=== PATIENT | female | born 1980 | race American Indian/Alaskan Native ===

== ENCOUNTER 2021-01-06 07:40 | Observation (INO) | payer MEDICAID, OTHER ==
--- NOTE | 2021-01-06 08:10 | Event Note ---
ED Screening Note Date of service: 01/06/21 Time: 08:09 ED Screening Note: Patient complains of sudden onset of dizziness, chest pain, shortness of breath today while at work History of diabetes and hypertension POC glucose 372 No current chest pain per patient This initial assessment/diagnostic orders/clinical plan/treatment(s) is/are subject to change based on patients health status, clinical progression and re- assessment by fellow clinical providers in the ED. Further treatment and workup at subsequent clinical providers discretion. Patient/guardian urged not to elope from the ED as their condition may be serious if not clinically assessed and managed. Initial orders include: Labs EKG Chest x-ray
[2021-01-06 08:56] LABS: Bacteria,Urine 1+ /HPF (Negative); Bilirubin,Urine NEG (Negative); Blood,Urine NEG (Negative); Color,Urine Yellow (Yellow); Hyaline Casts,Urine 7 /LPF; Urobilinogen,Urine < 2.0 mg/dL (<2.0)
--- NOTE | 2021-01-06 09:18 | XRay Report ---
CHEST 2 VIEWS INDICATION / CLINICAL INFORMATION: chest pain. COMPARISON: None available. FINDINGS: SUPPORT DEVICES: None. HEART / MEDIASTINUM: No significant abnormality. LUNGS / PLEURA: No significant pulmonary or pleural abnormality. No pneumothorax. ADDITIONAL FINDINGS: No significant additional findings. IMPRESSION: 1. No acute findings. Signer Name: Jose Vidales MD Signed: 01/06/2021 9:13 AM Workstation Name: [id number]
[2021-01-06 09:38] LABS: Protein,Urine >500 mg/dL (Negative)
[2021-01-06] MEDS ORDERED: SODIUM CHLORIDE 0.9% 1000 ML 1,000 ML IV ONE ×2 (11:31→14:23)
--- NOTE | 2021-01-06 11:37 | Emergency Department Report ---
ED Chest Pain HPI - General Chief Complaint: Weakness Stated Complaint: COLD SWEATS Time Seen by Provider: 01/06/21 08:06 Source: patient Mode of arrival: Ambulatory Limitations: No Limitations - History of Present Illness Initial Comments: 40-year-old female with history of hypertension and DM 2 presents after a near syncopal episode which occurred this morning at work. The patient stated that this morning she got to work at a [employer] and she was standing in line when she began to feel lightheaded and started having cold sweats. She felt as if she was about to pass out but never did. She briefly experienced shortness of breath with chest pain and generalized abdominal pain which lasted for approximately 2 minutes and then resolved. All of her symptoms resolved over the course of a few minutes. She reports that she has no symptoms at this time. She reports that she has not been checking her blood sugars for the past few weeks but is unable to explain why. Other than her symptoms today she denies experiencing any headache, vision change, focal weakness, sensory changes, chest pain, shortness of breath, cough, abdominal pain, nausea/vomiting, dysuria, back pain, rash, or any other complaints. Her LMP started and she is on her menstrual period now. Denies any recent surgery, travel, or prolonged immobilization. - Related Data Home Medications Medication Instructions Recorded Confirmed Last Taken Januvia 01/06/21 Unknown Lasix 01/06/21 Unknown amLODIPine 01/06/21 Unknown glipiZIDE 01/06/21 Unknown hydrALAZINE 01/06/21 Unknown Allergies Allergy/AdvReac Type Severity Reaction Status Date / Time No Known Allergies Allergy Unverified 01/06/21 08:07 Heart Score - HEART Score History: Slightly suspicious EKG: Normal Age: < 45 Risk factors: 1-2 risk factors Troponin: 1-3x normal limit HEART Score: 2 - EKG Read Time Time EKG Completed: 08:12 EKG Read Time: 08:17 ED Review of Systems ROS: Stated complaint: COLD SWEATS Other details as noted in HPI Constitutional: denies: chills, fever Eyes: denies: eye pain, vision change ENT: denies: throat pain, congestion Respiratory: shortness of breath (resolved). denies: cough Cardiovascular: chest pain (resolved). denies: palpitations, edema, syncope Endocrine: denies: increased thirst, increased urine Gastrointestinal: abdominal pain (resolved). denies: nausea, vomiting Genitourinary: denies: dysuria, frequency, abnormal menses Musculoskeletal: denies: back pain Skin: denies: rash Neurological: denies: headache, weakness, numbness ED Past Medical Hx - Past Medical History Previous Medical History?: Yes Hx Hypertension: Yes Hx Diabetes: Yes - Medications Home Medications: Home Medications Medication Instructions Recorded Confirmed Last Taken Type Januvia 01/06/21 Unknown History Lasix 01/06/21 Unknown History amLODIPine 01/06/21 Unknown History glipiZIDE 01/06/21 Unknown History hydrALAZINE 01/06/21 Unknown History ED Physical Exam - General Limitations: No Limitations - Other Other exam information: GENERAL: Well developed and well nourished. No acute distress HEENT: Normocephalic. No obvious signs of trauma. Dry mucous membranes. EYES: Extraocular movements are intact. Pupils are equal round and reactive to light bilaterally NECK: Supple. Trachea is midline. LUNGS: Nonlabored breathing. Equal chest rise bilaterally. Clear to auscultation bilaterally. HEART/CARDIOVASCULAR: Regular rate and rhythm. No murmurs or rubs. VASCULAR: 2+ peripheral pulses. Cap refill < 2 seconds. Trace LE edema bilaterally ABDOMEN: Abdomen is soft and nondistended. There is no significant tenderness, guarding or rebound. SKIN: Skin is warm and dry NEURO: Patient is awake, alert, and oriented. civil engineering designer II-XII grossly intact. No focal deficits. Normal motor and sensory exam throughout. Normal speech. MUSCULOSKELETAL: No obvious deformities. No significant tenderness. BACK/SPINE: No costovertebral angle tenderness. ED Course Vital Signs 01/06/21 01/06/21 01/06/21 08:07 12:00 12:16 Temperature 98.1 F Pulse Rate 80 76 76 Respiratory 16 17 14 Rate Blood Pressure 145/67 145/67 Blood Pressure 156/76 [Right] O2 Sat by Pulse 99 Oximetry 01/06/21 01/06/21 01/06/21 12:30 12:46 13:00 Temperature Pulse Rate Respiratory 14 10 L 15 Rate Blood Pressure 160/82 160/82 170/90 Blood Pressure [Right] O2 Sat by Pulse Oximetry 01/06/21 01/06/21 01/06/21 13:16 14:48 15:00 Temperature Pulse Rate Respiratory 17 Rate Blood Pressure 170/90 172/69 162/46 Blood Pressure [Right] O2 Sat by Pulse Oximetry 01/06/21 01/06/21 01/06/21 15:25 15:30 15:55 Temperature Pulse Rate Respiratory Rate Blood Pressure 178/87 178/87 170/88 Blood Pressure [Right] O2 Sat by Pulse Oximetry 01/06/21 01/06/21 01/06/21 16:00 16:25 16:30 Temperature Pulse Rate Respiratory Rate Blood Pressure 170/88 162/90 162/90 Blood Pressure [Right] O2 Sat by Pulse Oximetry 01/06/21 01/06/21 01/06/21 16:55 17:00 17:16 Temperature Pulse Rate 85 Respiratory 18 Rate Blood Pressure 181/85 181/85 Blood Pressure [Right] O2 Sat by Pulse 100 Oximetry 01/06/21 01/06/21 01/06/21 17:22 17:30 17:54 Temperature Pulse Rate 83 84 Respiratory 17 15 Rate Blood Pressure 181/85 181/85 175/88 Blood Pressure [Right] O2 Sat by Pulse Oximetry ZI score - Zi Score Age > 65: (0) No Aspirin use within the Past 7 Days: (0) No 3 or more CAD Risk Factors: (0) No 2 or more Angina events in past 24 hrs: (0) No Known CAD with more than 50% Stenosis: (0) No Elevated Cardiac Markers: (0) No ST Deviation Greater than 0.5mm: (0) No ZI Score: 0 ED Medical Decision Making - Lab Data Result diagrams: 01/06/21 Unknown 01/06/21 13:17 Lab Results 01/06/21 01/06/21 01/06/21 Range/Units 08:06 13:17 16:13 Sodium 137 (137-145) mmol/L Potassium 4.5 (3.6-5.0) mmol/L Chloride 104.6 (98-107) mmol/L Carbon Dioxide 22 (22-30) mmol/L Anion Gap 15 mmol/L BUN 17 (7-17) mg/dL Creatinine 1.9 H (0.6-1.2) mg/dL Estimated GFR 35 ml/min BUN/Creatinine Ratio 9 % Glucose 335 H (65-100) mg/dL POC Glucose 372 H (70-105) mg/dL Calcium 8.5 (8.4-10.2) mg/dL Total Bilirubin < 0.20 (0.1-1.2) mg/dL AST 11 (5-40) units/L ALT 11 (7-56) units/L Alkaline Phosphatase 119 (35-129) units/L Troponin T 0.031 H 0.033 H (0.00-0.029) ng/mL NT-Pro-B Natriuret Pep 74.29 (0-450) pg/mL Total Protein 6.1 L (6.3-8.2) g/dL Albumin 3.4 L (3.9-5) g/dL Albumin/Globulin Ratio 1.3 % - EKG Data -: EKG Interpreted by Ks - EKG Data 01/06/21 11:46 Normal sinus rhythm. Normal axis. Normal intervals. No significant ST segment or T wave abnormalities. - Radiology Data CHEST 2 VIEWS INDICATION / CLINICAL INFORMATION: chest pain. COMPARISON: None available. FINDINGS: SUPPORT DEVICES: None. HEART / MEDIASTINUM: No significant abnormality. LUNGS / PLEURA: No significant pulmonary or pleural abnormality. No pneumothorax. ADDITIONAL FINDINGS: No significant additional findings. IMPRESSION: 1. No acute findings. Signer Name: Jose Vidales MD Signed: 01/06/2021 8:13 AM Workstation Name: [id number] - Medical Decision Making 40-year-old female with history of hypertension diabetes who presented after a near syncopal episode which occurred this morning while at work. During the episode patient felt lightheaded and with cold sweats and also experienced some shortness of breath with chest pain and generalized abdominal pain for about 2 minutes and then all of her symptoms resolved. No symptoms currently. She is afebrile and with normal vital signs other than elevated blood pressure. Her fingerstick glucose was 372. Physical examination reveals dry mucous membranes. Otherwise she has a nonfocal neurologic exam, she has normal heart sounds, and lungs are clear. She has no significant lower extremity swelling. She is PERC negative for PE. We will give 1 L of IV fluids and perform broad work-up with a full set of labs, EKG, and chest x-ray. We will continue to monitor closely. On repeat assessment at 11:45 AM, the patient is resting comfortably in the bed. She reports that she remains asymptomatic at this time. Labs have only partially resulted but there is no significant leukocytosis or anemia. test is negative. Urinalysis reveals glucosuria but no evidence of infection. Remaining labs are still pending. Multiple calls have been made to the lab regarding the remaining labs including CMP which are still pending. Finally at 1:45 PM I was able to speak to supervising the lab point for me that due to one of the analyzer is being down, the labs are delayed but should be resulted soon. CMP has resulted in reveals acute kidney injury with creatinine of 1.9 from unknown baseline. Patient states that although she has had kidney problems in the past related to coronavirus, the function of her kidneys fully returned to normal after that. BUN is 17. There is no significant anion gap. Glucose is elevated at 335. Troponin is mildly elevated at 0.03. Additional 1 L of IV fluids was ordered. Spoke with the patient regarding the lab findings including the elevated creatinine and positive troponin. I spoke about the fact that although it is possible that these findings could be explained by severe dehydration, I would recommend that she be admitted to the hospital for IV fluids and trending of labs. The patient expressed understanding and agreement with this plan of care. At 2:20 PM I spoke with Dr. Fuentes, the on-call hospitalist regarding the case. Critical care attestation.: If time is entered above; I have spent that time in minutes in the direct care of this critically ill patient, excluding procedure time. ED Disposition Clinical Impression: Near syncope, Acute kidney injury, Elevated troponin, Hyperglycemia, Low TSH level Disposition: OP ADMIT IP TO THIS HOSP Is pt being admited?: Yes Condition: Stable
[2021-01-06 11:52] LABS: Basophils # (Auto) 0.1 K/mm3 (0.0-0.1); Basophils % (Auto) 0.8 % (0.0-1.8); Eosinophils # (Auto) 0.1 K/mm3 (0.0-0.4); Eosinophils % (Auto) 0.6 % (0.0-4.3); Hematocrit 34.6 % (30.3-42.9); Hemoglobin 11.3 gm/dl (10.1-14.3); Lymphocytes # (Auto) 1.4 K/mm3 (1.2-5.4); Lymphocytes % (Auto) 15.6 % (13.4-35.0); Mean Corpuscular HGB Conc 33 % (30-34); Mean Corpuscular Volume 79 fl (79-97); Monocytes # (Auto) 0.4 K/mm3 (0.0-0.8); Monocytes % (Auto) 4.7 % (0.0-7.3); Platelet Count 234 K/mm3 (140-440); Red Blood Count 4.37 M/mm3 (3.65-5.03); Red Cell Distribution Width 17.7 % (13.2-15.2)
[2021-01-06 13:46] LABS: Alanine Aminotransferase 11 units/L (7-56); Albumin 3.4 g/dL (3.9-5); BUN/Creatinine Ratio 9; Blood Urea Nitrogen 17 mg/dL (7-17); Calcium 8.5 mg/dL (8.4-10.2); Hemolysis Index 8
[2021-01-06] MEDS ORDERED: HYDROmorphone 1 MG/1 ML INJ IV PRN (16:35)
[2021-01-06] MEDS ORDERED: ACETAMINOPHEN 325 MG TAB PO PRN (16:35)
[2021-01-06] MEDS ORDERED: oxyCODONE /ACETAMINOPHEN 5-325MG TAB PO PRN (16:35)
[2021-01-06] MEDS ORDERED: ONDANSETRON 4 MG/2 ML INJ IV PRN (16:35)
[2021-01-06] MEDS ORDERED: ALBUTEROL 2.5 MG/3 ML NEBU IH PRN (16:35)
--- NOTE | 2021-01-06 16:38 | History and Physical Report ---
History of Present Illness Chief complaint: I feel like I was going to pass out History of present illness: 40 YO Female with Obesity Hypoventilation Syndrome, DM, HTN, HLD presents to ED for evaluation. Patient reports "I fell a couple on a pass out". Patient states that she was in her usual state of health today while at work until she experienced a sudden onset of weakness, diaphoresis and felt as though she was going to pass out. Patient transported to [facility] via private vehicle for further care and evaluation of the aforementioned symptoms. The patient was seen and evaluated in the emergency department. All lab and imaging studies reviewed. Patient found to have presyncope, GALLITO, as well as clinical symptoms consistent with cardiomyopathy. Patient placed in observation status and admitted to telemetry for further care and monitoring. Patient denies fever, chills, chest pain, palpitation, productive cough, skin rash, recent ill contacts, trauma, or known ill contacts or known exposure to COVID-19. No prior admission for review. No medication listed at time of admission for reconciliation. CTA chest as well as echocardiogram ordered at time of admission. Past History Past Medical History: diabetes, hypertension, hyperlipidemia, other (See HPI) Past Surgical History: No surgical history, Other (Reviewed) Social history: single. denies: smoking Family history: diabetes, hypertension Medications and Allergies Allergies Allergy/AdvReac Type Severity Reaction Status Date / Time No Known Allergies Allergy Unverified 01/06/21 08:07 Home Medications Medication Instructions Recorded Confirmed Last Taken Type Januvia 01/06/21 Unknown History Lasix 01/06/21 Unknown History amLODIPine 01/06/21 Unknown History glipiZIDE 01/06/21 Unknown History hydrALAZINE 01/06/21 Unknown History Active Meds: Active Medications Acetaminophen (Acetaminophen 325 Mg Tab) 650 mg PO Q4H PRN PRN Reason: Pain MILD(1-3)/Fever >100.5/GUTIERREZ Albuterol (Albuterol 2.5 Mg/3 Ml Nebu) 2.5 mg IH Q4HRT PRN PRN Reason: Shortness Of Breath Hydromorphone HCl (Hydromorphone 1 Mg/1 Ml Inj) 0.5 mg IV Q12H PRN PRN Reason: Pain , Severe (7-10) Ondansetron HCl (Ondansetron 4 Mg/2 Ml Inj) 4 mg IV Q8H PRN PRN Reason: Nausea And Vomiting Oxycodone/Acetaminophen (Oxycodone /Acetaminophen 5-325mg Tab) 1 tab PO Q12H PRN PRN Reason: Pain, Moderate (4-6) Sodium Chloride (Sodium Chloride 0.9% 10 Ml Flush Syringe) 10 ml IV BID RODRICK Sodium Chloride (Sodium Chloride 0.9% 10 Ml Flush Syringe) 10 ml IV PRN PRN PRN Reason: LINE FLUSH Review of Systems Constitutional: other (Near syncope), no weight loss, no weight gain, no fever, no chills Ears, nose, mouth and throat: no ear pain, no ear discharge, no tinnitis, no decreased hearing, no nasal congestion, no sinus pressure Breasts: no change in shape, no swelling Cardiovascular: lightheadedness, no chest pain, no orthopnea, no palpitations Respiratory: no cough, no cough with sputum, no hemoptysis, no shortness of breath Gastrointestinal: no abdominal pain, no nausea, no vomiting, no diarrhea, no change in bowel habits Genitourinary Female: no pelvic pain, no flank pain, no dysuria, no urinary frequency, no urgency Rectal: no pain, no incontinence, no bleeding Musculoskeletal: no neck stiffness, no neck pain, no shooting arm pain, no arm numbness/tingling Integumentary: no rash, no pruritis, no redness, no sores, no wounds, no boils Neurological: no transient paralysis, no weakness, no numbness, no seizures, no syncope, no tremors Psychiatric: no anxiety, no memory loss, no sleep disturbances, no insomnia Endocrine: no cold intolerance, no excessive thirst, no polyuria, no nocturia Hematologic/Lymphatic: no easy bruising, no easy bleeding Allergic/Immunologic: no urticaria, no allergic rhinitis, no wheezing Exam - Constitutional Vitals: Temp Pulse Resp BP Pulse Ox 98.1 F 76 17 172/69 99 01/06/21 08:07 01/06/21 12:16 01/06/21 13:16 01/06/21 14:48 01/06/21 08:07 General appearance: Present: mild distress, obese - EENT Eyes: Present: PERRL ENT: hearing intact, clear oral mucosa - Neck Neck: Present: supple, normal ROM - Respiratory Respiratory effort: normal Respiratory: bilateral: CTA - Cardiovascular Heart Sounds: Present: S1 & S2. Absent: rub, click - Extremities Extremities: pulses symmetrical, No edema Peripheral Pulses: within normal limits - Abdominal General gastrointestinal: Present: soft, non-tender, non-distended, normal bowel sounds Female genitourinary: Present: normal - Integumentary Integumentary: Present: clear, warm, dry - Musculoskeletal Musculoskeletal: gait normal, strength equal bilaterally - Psychiatric Psychiatric: appropriate mood/affect, intact judgment & insight, depressed - Neurologic Neurologic: CNII-XII intact, moves all extremities HEART Score - HEART Score EKG: Normal Age: < 45 Risk factors: 1-2 risk factors Troponin: Troponin T 0.031 ng/mL (0.00-0.029) H 01/06/21 13:17 Troponin: 1-3x normal limit Results - Labs CBC & Chem 7: 01/06/21 Unknown 01/06/21 13:17 Labs: Abnormal lab results 01/06/21 01/06/21 01/06/21 Range/Units 08:06 13:17 Unknown MCH 26 L (28-32) pg RDW 17.7 H (13.2-15.2) % Seg Neutrophils % 78.3 H (40.0-70.0) % Creatinine 1.9 H (0.6-1.2) mg/dL Glucose 335 H (65-100) mg/dL POC Glucose 372 H (70-105) mg/dL Troponin T 0.031 H (0.00-0.029) ng/mL Albumin 3.4 L (3.9-5) g/dL Assessment and Plan - Patient Problems (1) Diastolic CHF Current Visit: Yes Status: Acute Qualifiers: Heart failure chronicity: acute on chronic Qualified Code(s): I50.33 - Acute on chronic diastolic (congestive) heart failure Plan to address problem: Strict I/O, monitor urine output every shift, afterload reduction, supplemental oxygen, pulse oximetry, (2) Hypertension Current Visit: Yes Status: Acute Qualifiers: Hypertension type: primary hypertension Qualified Code(s): I10 - Essential (primary) hypertension Plan to address problem: Monitor blood pressure every shift, continue medical management (3) Diabetes Current Visit: Yes Status: Acute Plan to address problem: Consistent carbohydrate diet, insulin protocol, hypoglycemia protocol (4) Hyperlipidemia Current Visit: Yes Status: Acute Qualifiers: Hyperlipidemia type: mixed hyperlipidemia Qualified Code(s): E78.2 - Mixed hyperlipidemia Plan to address problem: Statin therapy, low-cholesterol diet, supportive care. (5) Near syncope Current Visit: Yes Status: Acute Plan to address problem: Remote telemetry monitoring, echocardiogram ordered and is pending at time of admission, serial cardiac enzymes, EKG, supportive care. CTA chest. (6) GALLITO (acute kidney injury) Current Visit: Yes Status: Acute Plan to address problem: BMP, monitor urine output every shift, repeat BMP in a.m. to monitor serum creatinine as well as GFR. (7) Obesity hypoventilation syndrome Current Visit: Yes Status: Acute Plan to address problem: Balanced diet, increase physical activity discharge, outpatient pulmonary follow-up for sleep study. (8) DVT prophylaxis Current Visit: Yes Status: Acute Plan to address problem: SCD bilateral lower extremities while in bed, patient is ambulatory
[2021-01-06 17:58] LABS: Free T4 (Free Thyroxine) 1.44 ng/dL (0.76-1.46)
--- NOTE | 2021-01-06 18:08 | Cat Scan Report ---
CTA CHEST WITH IV CONTRAST INDICATION: Dyspnea. TECHNIQUE: Axial CT images were obtained through the chest after injection of 60 cc Omnipaque 350 IV contrast. 3 plane MIP reconstructions were produced. All CT scans at this location are performed using CT dose r eduction for ALARA by means of automated exposure control. COMPARISON: None available. FINDINGS: Pulmonary Arteries: No pulmonary emboli. Lungs: No significant abnormality. Trachea and Bronchi: No significant abnormality. Heart and Pericardium: No significant abnormality. Vasculature: No significant abnormality. Lymphatics: No lymphadenopathy. Additional Findings: None. Upper Abdomen: No acute findings. Skeletal Structures: No acute findings or aggressive bone lesions. IMPRESSION: 1. No CT evidence for pulmonary embolism. 2. No acute findings. Signer Name: José Miguel Rios MD Signed: 01/06/2021 6:03 PM Workstation Name: [id number]
[2021-01-06] MEDS ORDERED: hydrALAZINE 20 MG/1 ML INJ IV ONE (19:41)
[2021-01-06] MEDS ORDERED: ASPIRIN 325 MG TAB PO ONE (20:18)
[2021-01-07 01:10] LABS: Chol/HDL Ratio 6.51 %; HDL Cholesterol 37 mg/dL (40-59); LDL Cholesterol,Direct 167 mg/dL (50-130)
[2021-01-07 08:24] LABS: Calcium 8.7 mg/dL (8.4-10.2)
[2021-01-07] MEDS: INSULIN LISPRO 100 UNIT/ML SUB-Q SCH ×4 (10:08→21:41)
[2021-01-07] MEDS: hydrALAZINE 20 MG/1 ML INJ IV PRN ×2 (10:08→21:41)
--- NOTE | 2021-01-07 10:50 | Electrocardiograph Report ---
[facility] Test Date: 2021-01-06 Test Time: 08:12:10 Pat Name: ERIN WILKERSON Department: Room: A490 Gender: F Pewter Caster: OSWALD : 1980 Requested By: SEBASTIAN DON Order Number: [id number] Reading MD: Krishna Shell Measurements Intervals [place] Rate: 74 P: 48 MT: 184 QRS: 17 QRSD: 90 T: 22 QT: 384 QTc: 426 Interpretive Statements Sinus rhythm Left ventricular hypertrophy No previous ECG available for comparison Electronically Signed On 01-07-2021 10:50:06 EDT by Krishna Shell
--- NOTE | 2021-01-07 15:13 | Discharge Summary ---
Providers - Providers Date of Admission: 01/06/21 16:35 Date of discharge: 01/08/21 Attending physician: KELSIE CASTILLO Primary care physician: CEMENT SPRAYER HELPER Hospitalization Condition: Stable Pertinent studies: Chest x-ray, chest CT, head CT, brain MRI, carotid Doppler, 2D echocardiogram Hospital course: There is a 40-year-old female with a BMI 44.1 diabetes, hypertension hyperlipidemia presented to the ER for episodes like passing out. Patient states that she was in her usual state of health today while at work until she experienced a sudden onset of weakness, diaphoresis and felt as though she was going to pass out. In the ER patient noted to have normal cardiac enzymes, mild GALLITO with creatinine 1.9. CTA chest showed no acute PE, 2D echocardiogram showed preserved EF. No reported arrhythmia on telemetry. CT head showed asymetric density in the SEAN- ordered MRI brain and consulted neurology. MRI brain finding were normal, patient noted to have elevated BP next day. Home medications were resumed and patient was advised for compliance. Patient was also suggested to hold her oral hypoglycemics because of her declining renal function. She was advised to continue her home insulin dose and sliding scale of insulin for now. Patient will need repeat BMP in 1 week and to follow-up with her PCP. Patient also requested prescription for her prophylactic medications for genital herpes -valacyclovir. patient was then discharged home in stable condition with outpatient follow-up. Disposition: DC-01 TO HOME OR SELFCARE Final Discharge Diagnosis (Prints w/discharge instructions): --Presyncope, likely due to uncontrolled blood pressure and dehydration. --Diabetes mellitus type 2, uncontrolled. --Hypertension, uncontrolled. --Hyperlipidemia. --GALLITO, likely vasomotor nephropathy, improved. --Morbid obesity. --h/o genital herpes Time spent for discharge: 34 minutes Core Measure Documentation - Palliative Care Palliative Care/ Comfort Measures: Not Applicable - Core Measures Any of the following diagnoses?: none Exam - Physical Exam Narrative exam: GENERAL: well-developed and morbidly obese female lying on bed appeared to be in no discomfort. HEENT: Normocephalic. Atraumatic. No conjunctival congestion or icterus. Patient has moist mucous membranes. NECK: Supple. Trachea midline. CHEST/LUNGS: Clear to auscultated bilaterally, breathing nonlabored. No wheezes crackles or rhonchi. HEART/CARDIOVASCULAR: Regular in rate and rhythm. S1 and S2 positive. ABDOMEN: Abdomen is soft, nontender. Patient has normal bowel sounds. SKIN: There is no rash. Warm and dry. NEURO: No focal motor deficit. Follows command. MUSCULOSKELETAL: No joint effusion or tenderness. EXTRIMITY: No edema, no cyanosis or clubbing. PSYCH: Cooperative. - Constitutional Vitals: Temp Pulse Resp BP Pulse Ox 98.9 F 90 18 148/76 100 01/07/21 10:51 01/07/21 10:51 01/07/21 10:51 01/07/21 10:51 01/07/21 10:51 Plan Activity: advance as tolerated Weight Bearing Status: Weight Bear as Tolerated Diet: low fat, low salt, diabetic Special Instructions: record daily BP diary, record blood sugar diary Additional Instructions: Repeat BMP in one week. Please continue insulin only till your renal function is normal. Follow up with: PRIMARY CAREMD [Primary Care Provider] - 3-5 Days HOLLY PEREZ MD [Staff Physician] - 7 Days Forms: Work/School Release Form Prescriptions: Insulin Regular, Human [HumuLIN R] 0 units SUB-Q ACHS 30 Days Insulin NPH, Human [NovoLIN N] 10 unit SUB-Q BIDDIAB 30 Days valACYclovir [Valtrex] 1,000 mg PO QDAY #14 tablet
--- NOTE | 2021-01-07 17:07 | Cat Scan Report ---
CT BRAIN: 01/07/2021 INDICATION / CLINICAL INFORMATION: presyncope. COMPARISON: None available. FINDINGS: BRAIN/INTRACRANIAL STRUCTURES: Unenhanced CT images of the brain were obtained. There is some asymmetric density associated with the right side of the mason, of uncertain significanc e. This is generally seen as a result of beam hardening artifact arising from the skull base, althoug h is perhaps slightly more prominent in this case. Some small amount of subcortical hypodensity is pr esent in the frontal periventricular white matter adjacent to the caudate head. Ventricles and sulci are at the upper limits of normal in size and shape for a patient of this age. T here is no evidence of acute large vessel territory ischemic injury, hemorrhage, or mass. There is no evidence of hemorrhage or mass. There are no abnormal extra axial fluid collections. EXTRACRANIAL STRUCTURES: Unremarkable. IMPRESSION: Questionable asymmetric hypodensity in mason. Otherwise no evidence of acute abnormality. Depending on details of the clinical circumstances, consi deration for follow-up with MRI is suggested. All CT scans at this location are performed using dose reduction to ALARA by means of automated expos ure control. Signer Name: Clay Angelo MD Signed: 01/07/2021 5:02 PM Workstation Name: [id number]
--- NOTE | 2021-01-07 17:56 | Event Note ---
Date: 01/07/21 Will hold d/c as CT head showed asymetric density in the SEAN- ordered MRI brain
--- NOTE | 2021-01-08 10:13 | Progress Note ---
Assessment and Plan Hypertension Current Visit: Yes Status: Acute Qualifiers: Hypertension type: primary hypertension Qualified Code(s): I10 - Essential (primary) hypertension Plan to address problem: Monitor blood pressure every shift, continue medical management Diabetes Current Visit: Yes Status: Acute Plan to address problem: Consistent carbohydrate diet, insulin protocol, hypoglycemia protocol Hyperlipidemia Current Visit: Yes Status: Acute Qualifiers: Hyperlipidemia type: mixed hyperlipidemia Qualified Code(s): E78.2 - Mixed hyperlipidemia Plan to address problem: Statin therapy, low-cholesterol diet, supportive care. Near syncope Current Visit: Yes Status: Acute Plan to address problem: Remote telemetry monitoring, echocardiogram ordered with preserved EF, serial cardiac enzymes normal, CTA chest no PE. CT head with abnormal findings -ordered MRI brain GALLITO (acute kidney injury) Current Visit: Yes Status: Acute Plan to address problem: BMP, monitor urine output every shift, repeat BMP in a.m. to monitor serum creatinine as well as GFR. Morbid Obesity Current Visit: Yes Status: Acute Plan to address problem: Balanced diet, increase physical activity discharge, outpatient pulmonary follow-up for sleep study. DVT prophylaxis Current Visit: Yes Status: Acute Plan to address problem: SCD bilateral lower extremities while in bed, patient is ambulatory Daily clinical course: 01/07/21: All work-up has been normal, but CT head showed asymetric density in the SEAN- ordered MRI brain, Subjective Date of service: 01/08/21 Interval history: Patient seen and examined. Medical records and medication list reviewed. No acute event overnight noted by the RN. Patient denies any chest pain or difficulty breathing. Patient is tolerating diet. Denies any focal deficits, vitals noted and stable Discussed plan of care at bedside with patient. Objective - Exam Narrative Exam: GENERAL: well-developed and morbidly obese female lying on bed appeared to be in no discomfort. HEENT: Normocephalic. Atraumatic. No conjunctival congestion or icterus. Patient has moist mucous membranes. NECK: Supple. Trachea midline. CHEST/LUNGS: Clear to auscultated bilaterally, breathing nonlabored. No wheezes crackles or rhonchi. HEART/CARDIOVASCULAR: Regular in rate and rhythm. S1 and S2 positive. ABDOMEN: Abdomen is soft, nontender. Patient has normal bowel sounds. SKIN: There is no rash. Warm and dry. NEURO: No focal motor deficit. Follows command. MUSCULOSKELETAL: No joint effusion or tenderness. EXTRIMITY: No edema, no cyanosis or clubbing. PSYCH: Cooperative. - Constitutional Vitals: Vital Signs - 12hr 01/07/21 01/08/21 01/08/21 23:00 03:40 08:36 Temperature 98.3 F 98.0 F 98.5 F Pulse Rate 92 H 88 85 Respiratory 18 18 20 Rate Blood Pressure 165/82 133/62 188/93 O2 Sat by Pulse 97 99 100 Oximetry 01/08/21 08:53 Temperature Pulse Rate Respiratory Rate Blood Pressure O2 Sat by Pulse 100 Oximetry - Labs CBC & Chem 7: 01/06/21 Unknown 01/07/21 07:19 Labs: Abnormal lab results 01/07/21 01/07/21 01/08/21 Range/Units 11:35 20:22 08:38 POC Glucose 364 H 192 H 266 H (70-105) mg/dL HEART Score - HEART Score EKG: Normal Age: < 45 Risk factors: 1-2 risk factors Troponin: Troponin T 0.033 ng/mL (0.00-0.029) H 01/06/21 16:13 Troponin: 1-3x normal limit
--- NOTE | 2021-01-08 10:26 | Magnetic Resonance Report ---
MRI BRAIN 01/08/2021 INDICATION / CLINICAL INFORMATION: possible CVA--NEAR SYNCOPE. Possible CT abnormality TECHNIQUE: Multiplanar, multisequence MR images of the brain were obtained. COMPARISON: CT brain 01/07/2021 FINDINGS: BRAIN / INTRACRANIAL CONTENTS: Unenhanced MR images of the brain demonstrate no evidence of acute abn ormality. Ventricles and sulci are normal in size and shape. There is some chronic white matter T2 weighted hyperintensity in the left frontal periventricular whi te matter. Brain parenchyma is otherwise unremarkable. There is no evidence of abnormality involving the mason. The possible asymmetry noted on the earlier C T scan is presumably artifactual. There is no evidence of acute ischemic injury, hemorrhage, or mass. There are no abnormal extra-axial fluid collections. EXTRACRANIAL: Unremarkable CRANIOCERVICAL JUNCTION: No significant abnormality. VASCULAR FLOW-VOIDS: No significant abnormality. IMPRESSION: No acute abnormality. Limited left frontal periventricular white matter signal change, with a chroni c appearance. Signer Name: Clay Angelo MD Signed: 01/08/2021 10:21 AM Workstation Name: [id number]
[2021-01-08] MEDS: INSULIN LISPRO 100 UNIT/ML SUB-Q SCH (10:32)
--- NOTE | 2021-01-08 10:50 | Consultation ---
History of Present Illness Consult date: 01/08/21 Reason for Consult: Near syncopy History of present illness: I feel like I was going to pass out History of present illness: 40 YO Female with Obesity Hypoventilation Syndrome, DM, HTN, HLD presents to ED for evaluation. Patient states that she was in her usual state of health while at work in standing position until she experienced a sudden onset of weakness, diaphoresis and felt as though she was going to pass out associated with tachycardia sob and blurred vision symptoms lasted few minutes she went to bathroom washed her face symptoms some what got better she tried to sitdown . Patient transported to [facility] via private vehicle for further care and evaluation of the aforementioned symptoms. The patient was seen and evaluated in the emergency department. All lab and imaging studies reviewed. Patient placed in observation status and admitted to telemetry for further care and monitoring. Patient denies fever, chills, chest pain, palpitation, productive cough, skin rash, recent ill contacts, trauma, or known ill contacts or known exposure to COVID-19. No prior admission for review. No medication listed at time of admission for reconciliation. CTA chest as well as echocardiogram ordered at time of admission. Past History Past Medical History: diabetes, hypertension, hyperlipidemia, other (See HPI) Past Surgical History: No surgical history, Other (Reviewed) Social history: single. denies: smoking Family history: diabetes, hypertension Medications and Allergies Allergies Allergy/AdvReac Type Severity Reaction Status Date / Time No Known Allergies Allergy Unverified 01/06/21 08:07 Home Medications Medication Instructions Recorded Confirmed Last Taken Type Januvia 01/06/21 Unknown History Lasix 01/06/21 Unknown History amLODIPine 01/06/21 Unknown History glipiZIDE 01/06/21 Unknown History hydrALAZINE 01/06/21 Unknown History Active Meds: Active Medications Acetaminophen (Acetaminophen 325 Mg Tab) 650 mg PO Q4H PRN PRN Reason: Pain MILD(1-3)/Fever >100.5/GUTIERREZ Albuterol (Albuterol 2.5 Mg/3 Ml Nebu) 2.5 mg IH Q4HRT PRN PRN Reason: Shortness Of Breath Hydromorphone HCl (Hydromorphone 1 Mg/1 Ml Inj) 0.5 mg IV Q12H PRN PRN Reason: Pain , Severe (7-10) Ondansetron HCl (Ondansetron 4 Mg/2 Ml Inj) 4 mg IV Q8H PRN PRN Reason: Nausea And Vomiting Oxycodone/Acetaminophen (Oxycodone /Acetaminophen 5-325mg Tab) 1 tab PO Q12H MS N PRN Reason: Pain, Moderate (4-6) Sodium Chloride (Sodium Chloride 0.9% 10 Ml Flush Syringe) 10 ml IV BID RODRICK Sodium Chloride (Sodium Chloride 0.9% 10 Ml Flush Syringe) 10 ml IV PRN PRN PRN Reason: LINE FLUSH Review of Systems Constitutional: other (Near syncope), no weight loss, no weight gain, no fever, no chills Ears, nose, mouth and throat: no ear pain, no ear discharge, no tinnitis, no decreased hearing, no nasal congestion, no sinus pressure Breasts: no change in shape, no swelling Cardiovascular: lightheadedness, no chest pain, no orthopnea, no palpitations Respiratory: no cough, no cough with sputum, no hemoptysis, no shortness of breath Gastrointestinal: no abdominal pain, no nausea, no vomiting, no diarrhea, no change in bowel habits Genitourinary Female: no pelvic pain, no flank pain, no dysuria, no urinary frequency, no urgency Rectal: no pain, no incontinence, no bleeding Musculoskeletal: no neck stiffness, no neck pain, no shooting arm pain, no arm numbness/tingling Integumentary: no rash, no pruritis, no redness, no sores, no wounds, no boils Neurological: no transient paralysis, no weakness, no numbness, no seizures, no syncope, no tremors Psychiatric: no anxiety, no memory loss, no sleep disturbances, no insomnia Endocrine: no cold intolerance, no excessive thirst, no polyuria, no nocturia Hematologic/Lymphatic: no easy bruising, no easy bleeding Allergic/Immunologic: no urticaria, no allergic rhinitis, no wheezing Past History Past Medical History: diabetes, hypertension, hyperlipidemia, other (See HPI) Past Surgical History: No surgical history, Other (Reviewed) Social history: single. denies: smoking Family history: diabetes, hypertension Medications and Allergies Allergies Allergy/AdvReac Type Severity Reaction Status Date / Time No Known Allergies Allergy Unverified 01/06/21 08:07 Home Medications Medication Instructions Recorded Confirmed Last Taken Type amLODIPine 10 mg PO DAILY 01/06/21 01/06/21 01/05/21 09:00 History carvediloL [Coreg] 12.5 mg PO BID 01/06/21 01/06/21 01/05/21 21:00 History Insulin NPH, Human [NovoLIN N] 10 unit SUB-Q BIDDIAB 30 Days 01/08/21 Unknown Rx Insulin Regular, Human [HumuLIN R] 0 units SUB-Q ACHS 30 Days 01/08/21 Unknown Rx hydrALAZINE [Apresoline TAB] 100 mg PO TID tab 01/08/21 Unknown Rx valACYclovir [Valtrex] 1,000 mg PO QDAY #14 tablet 01/08/21 Unknown Rx Active Meds: Active Medications Acetaminophen (Acetaminophen 325 Mg Tab) 650 mg PO Q4H PRN PRN Reason: Pain MILD(1-3)/Fever >100.5/GUTIERREZ Last Admin: 01/08/21 10:42 Dose: 650 mg Documented by: Albuterol (Albuterol 2.5 Mg/3 Ml Nebu) 2.5 mg IH Q4HRT PRN PRN Reason: Shortness Of Breath Hydralazine HCl (Hydralazine 20 Mg/1 Ml Inj) 10 mg IV Q3H PRN PRN Reason: Hypertension Last Admin: 01/07/21 21:41 Dose: 10 mg Documented by: Hydromorphone HCl (Hydromorphone 1 Mg/1 Ml Inj) 0.5 mg IV Q12H PRN PRN Reason: Pain , Severe (7-10) Insulin Human Lispro (Insulin Lispro 100 Unit/Ml) 0 unit SUB-Q ACHS [facility]; Protocol Last Admin: 01/08/21 10:32 Dose: 4 unit Documented by: Ondansetron HCl (Ondansetron 4 Mg/2 Ml Inj) 4 mg IV Q8H PRN PRN Reason: Nausea And Vomiting Oxycodone/Acetaminophen (Oxycodone /Acetaminophen 5-325mg Tab) 1 tab PO Q12H PRN PRN Reason: Pain, Moderate (4-6) Sodium Chloride (Sodium Chloride 0.9% 10 Ml Flush Syringe) 10 ml IV BID RODRICK Last Admin: 01/08/21 10:33 Dose: 10 ml Documented by: Sodium Chloride (Sodium Chloride 0.9% 10 Ml Flush Syringe) 10 ml IV PRN PRN PRN Reason: LINE FLUSH Physical Examination - Vital Signs Vital Signs: Vital Signs Temp Pulse Resp BP Pulse Ox 98.1 F 80 16 156/76 99 01/06/21 08:07 01/06/21 08:07 01/06/21 08:07 01/06/21 08:07 01/06/21 08:07 - Constitutional General appearance: comfortable - EENT EENT: Present: PERRL, mucous membranes moist - Respiratory Respiratory: Present: chest non-tender, lungs clear, rhonchi - Cardiovascular Cardiovascular: Present: normal S1, normal S2 Extremities: Present: no peripheral edema bilatateraly, no clubbing, cyanosis - Gastrointestinal Gastrointestinal: Present: normoactive bowel sounds - Integumentary Integumentary: Present: normal - Neurologic Cranial nerve examination: PERRL, EOMI, intact Speech examination: intact Sensorimotor examination: intact Detailed motor examination: grossly full strength in Results - Laboratory Findings CBC and BMP: 01/06/21 Unknown 01/07/21 07:19 Abnormal Lab Findings: Abnormal Labs 01/06/21 01/06/21 01/06/21 08:06 13:17 16:13 MCH RDW Seg Neutrophils % D-Dimer Carbon Dioxide Creatinine 1.9 H Glucose 335 H POC Glucose 372 H Troponin T 0.031 H 0.033 H Total Protein 6.1 L Albumin 3.4 L Triglycerides 298 H Cholesterol 241 H LDL Cholesterol Direct 167 H HDL Cholesterol 37 L TSH 01/06/21 01/06/21 01/06/21 16:44 17:27 20:55 MCH RDW Seg Neutrophils % D-Dimer 3801.29 H Carbon Dioxide Creatinine Glucose POC Glucose 301 H Troponin T Total Protein Albumin Triglycerides Cholesterol LDL Cholesterol Direct HDL Cholesterol TSH 0.197 L 01/06/21 01/07/21 01/07/21 Unknown 07:19 09:23 MCH 26 L RDW 17.7 H Seg Neutrophils % 78.3 H D-Dimer Carbon Dioxide 21 L Creatinine 1.7 H Glucose 280 H POC Glucose 283 H Troponin T Total Protein Albumin Triglycerides Cholesterol LDL Cholesterol Direct HDL Cholesterol TSH 01/07/21 01/07/21 01/08/21 11:35 20:22 08:38 MCH RDW Seg Neutrophils % D-Dimer Carbon Dioxide Creatinine Glucose POC Glucose 364 H 192 H 266 H Troponin T Total Protein Albumin Triglycerides Cholesterol LDL Cholesterol Direct HDL Cholesterol TSH Assessment and Plan Assessment and Plan # Near syncope -40 ys old femal presented with 2 episodes at home with near syncopy in standing position -Hx of DM and HTN -MRI brain and CT are unremarkable -CTA chest is unremarkable -echo with EF#50-55% -Poorly controlled HTN#180/84 -A1C is pending -check for orthostatic changes -Cardiac monitoring -seizure precaution # Diastolic CHF -Strict I/O, monitor urine output every shift, afterload reduction, supplemental oxygen, pulse oximetry, # Hypertension -Monitor blood pressure every shift, continue medical management -maintain BP<150/80 # Diabetes -Consistent carbohydrate diet, insulin protocol, hypoglycemia protocol -A1C is pending # Hyperlipidemia -Statin therapy, low-cholesterol diet, supportive care. -LDL#167 # GALLITO (acute kidney injury) -BMP, monitor urine output every shift, repeat BMP in a.m. to monitor serum creatinine as well as GFR. -BUN/Cr#16/1.7 # Obesity hypoventilation syndrome -Balanced diet, increase physical activity discharge, outpatient pulmonary follow-up for sleep study. # DVT prophylaxis -SCD bilateral lower extremities while in bed, patient is ambulatory PLAN 1-check for orthostatic changes 2- Hydration gentle 3-A1C 4- carotid US 5- D/C with cardiac monitoring with cardiology follow up 6- close follow up of BP and Blood suger -BP<150/80,BS<7.1 7- Lipitor 40 mg 8- weight loss will follow as needed
[2021-01-08] MEDS ORDERED: NON-FORMULARY EACH (Januvia 50 MG) PO SCH (11:15)
[2021-01-08] MEDS ORDERED: NON-FORMULARY EACH (Amlodipine 10 MG) PO SCH (11:15)
[2021-01-08] MEDS ORDERED: amLODIPine 10 MG TAB PO SCH (12:00)
[2021-01-08] MEDS ORDERED: carvediloL 12.5 MG TAB PO SCH (12:00)
[2021-01-08] MEDS: INSULIN NPH, HUMAN 100 UNIT/1 ML SUB-Q SCH ×2 (12:57→17:19)
[2021-01-08] MEDS ORDERED: valACYclovir 500 MG TAB PO SCH (13:00)
[2021-01-08] MEDS ORDERED: hydrALAZINE 100 MG TAB PO SCH (14:00)
[2021-01-08 15:41] VITALS: BP 135/71
--- NOTE | 2021-01-08 15:52 | Vascular Lab Report ---
DUPLEX DOPPLER ULTRASOUND CAROTID, BILATERAL INDICATION / CLINICAL INFORMATION: Presyncopy. COMPARISON: None available. FINDINGS: RIGHT CAROTID: No significant abnormality. - PLAQUE ESTIMATE (%): < 50% - CCA velocity: 100 cm/sec. - ICA peak systolic velocity: 95 cm/sec. - ICA/CCA PSV Ratio: Less than 2. Right Vertebral Artery: Antegrade flow. LEFT CAROTID: No significant abnormality. - PLAQUE ESTIMATE (%): < 50% - CCA velocity: 91 cm/sec. - ICA peak systolic velocity: 83 cm/sec. - ICA/CCA PSV Ratio: Less than 2. Left Vertebral Artery: Antegrade flow. IMPRESSION: 1. Right Internal Carotid Artery: Normal. 2. Left Internal Carotid Artery: Normal. 3. Incidental finding of benign-appearing thyroid nodules. Velocity criteria are extrapolated from diameter data as defined by the Society of Radiologists in Ul trasound Consensus Conference, Radiology 2003; 229;340-346. NO STENOSIS (NORMAL) - Plaque = none; ICA PSV < 125 cm/sec; ICA/CCA PSV Ratio < 2.0 <50% STENOSIS - Plaque < 50%; ICA PSV < 125 cm/sec; ICA/CCA PSV Ratio < 2.0 50-69% STENOSIS - Plaque > 50%; ICA PSV = 125-230 cm/sec; ICA/CCA PSV Ratio = 2.0-4.0 >70% BUT <100% STENOSIS - Plaque > 50%; ICA PSV > 230 cm/sec; ICA/CCA PSV Ratio > 4.0 NEAR OCCLUSION - Plaque = visible lumen; ICA PSV = high/low/none; ICA/CCA PSV Ratio = variable TOTAL OCCLUSION - Plaque = no lumen; ICA PSV = none; ICA/CCA PSV Ratio = N/A Scribed by: Myra Gomez RDME, RVT Scribed: 01/08/2021 2:20 PM I have reviewed the images, agree with this report, and edited this report as needed. Signer Name: Sushant Dumont MD Signed: 01/08/2021 3:48 PM Workstation Name: [id number]
[2021-01-08] MEDS ORDERED: INSULIN REGULAR, HUMAN 100 UNITS/1 ML SUB-Q SCH (16:30)
--- NOTE | 2021-01-27 12:46 | Electrocardiograph Report ---
[facility] Test Date: 2021-01-27 Test Time: 00:41:40 Pat Name: ERIN WILKERSON Department: Room: A490 1 Gender: F [employer] Operator: JOVON : 1980 Requested By: SEBASTIAN DON Order Number: [id number] Reading MD: Pablo Angel Measurements Intervals [place] Rate: 118 P: 83 [place]: 145 QRS: 79 QRSD: 79 T: 35 QT: 338 QTc: 474 Interpretive Statements Sinus tachycardia Biatrial enlargement Compared to ECG 01/06/2021 08:12:10 Sinus rate has increased Electronically Signed On 01-27-2021 12:46:08 EDT by Pablo Angel
== END 2021-01-08 19:00 | disposition home or self-care (01) ==
LOC: ED 07:40 → 4A 16:35
PROVIDERS: ADMIT Internal Medicine; ATTEND Internal Medicine
DX: I11.0 Hypertensive heart disease with heart failure (principal); I50.33 Acute on chronic diastolic (congestive) heart failure; N17.9 Acute kidney failure, unspecified; R55 Syncope and collapse; R77.8 Other specified abnormalities of plasma proteins; E11.65 Type 2 diabetes mellitus with hyperglycemia; E78.2 Mixed hyperlipidemia; E03.9 Hypothyroidism, unspecified; E66.2 Morbid (severe) obesity with alveolar hypoventilation; Z68.41 Body mass index [BMI] 40.0-44.9, adult
CPT/HCPCS: 36415; 70450; 70551; 71046; 71275; 80048; 80053; 80061; 81001; 82962; 83036; 83880; 84439; 84443; 84484; 84703; 85025; 85379; 93005; 93306; 93880; 96361; 96372; 96374; 96376; 99285; G0378; J0360; J7030; Q9967; J1815